=== PATIENT | female | born 1975 | race African-American/Black ===

== ENCOUNTER 2016-12-13 16:12 | Emergency (ER) | payer BC ==
[~2016-12-13] VITALS: Ht 162.6 cm; Wt 59.0 kg
[2016-12-13] MEDS ORDERED: MORP15TA PO (16:35)
[2016-12-13] MEDS ORDERED: CYCL10TA9 PO (16:35)
[2016-12-13] MEDS ORDERED: CELE-85 PO (16:35)
[2016-12-13] MEDS ORDERED: HYDR-548 PO (16:35)
[2016-12-13 17:27] LABS: BASOPHILS % (AUTO) 0.4 % (0.0-2.0); EOSINOPHILS # (AUTO) 0.1 K/uL (0.0-0.7); EOSINOPHILS % (AUTO) 1.2 % (0.0-7.0); HEMATOCRIT 32.9 % (37-47); HEMOGLOBIN 10.4 G/DL (12.0-16.0); LYMPHOCYTES # (AUTO) 1.7 K/UL (0.8-4.8); LYMPHOCYTES % (AUTO) 23.6 % (20.5-51.5); MEAN CORPUSCULAR HEMOGLOBIN 30.7 UUG (27.0-31.0); MEAN CORPUSCULAR HGB CONC 32 g/dL (32.0-37.0); MEAN CORPUSCULAR VOLUME 97.4 FL (81.0-99.0); MONOCYTES # (AUTO) 1.1 K/UL (0.1-1.30); MONOCYTES % (AUTO) 14.5 % (0.0-11.0); NEUTROPHILS # (AUTO) 4.5 K/UL (1.8-8.9); NEUTROPHILS % (AUTO) 60.3 % (38.5-71.5); PLATELET COUNT (AUTO) 402 K/UL (150-450); RED BLOOD CELL COUNT(AUTO) 3.38 MIL/UL (4.2-5.4); WHITE BLOOD COUNT (AUTO) 7.4 K/UL (4.0-11.2)
[2016-12-13 17:29] LABS: CREATININE 0.7 mg/dL (0.6-1.3); POTASSIUM 4.1 mmol/L (3.5-5.1)
--- NOTE | 2016-12-13 17:36 | NUR ---
Patient is her child, pending CT scan & blood tests results.
[2016-12-13 17:38] LABS: *BILIRUBIN,URIN NEGATIVE (NEGATIVE); *BLOOD, URINE Trace-intact (NEGATIVE); *CLARITY,URINE SLIGHTLY CLOUDY (CLEAR); *COLOR,URINE DARK YELLOW (YELLOW); *KETONES,URINE TRACE (NEGATIVE); *PROTEIN,URINE NEGATIVE (NEGATIVE); *UROBILINOGEN,URINE 0.2 E.U./dl (NORMAL); LEUKOCYTE ESTERASE ,URINE TRACE (NEGATIVE); NITRITE, URINE POSITIVE (NEGATIVE); UGLUCOSE TRACE (NEGATIVE)
[2016-12-13 17:45] LABS: BACTERIA,URINE FEW /HPF (NONE SEEN); RBC,URINE 0-3 /HPF (0-3); SQUAMOUS EPITHELIAL CELL,UR FEW /HPF (NONE SEEN)
--- NOTE | 2016-12-13 18:57 | NUR ---
Patient discharged to home in stable conditon. Written and verbal after care instructions given to patient and spouse. Patient and family verbalized understanding of instructions. Patient denies pains at this time.
== END 2016-12-13 18:59 | disposition home or self-care (01) ==
LOC: ER 16:19
DX: N20.1 Calculus of ureter (principal); Z88.0 Allergy status to penicillin
CPT/HCPCS: 36415; 85025; 87086; A4663